=== PATIENT | male | born 1955 | race Caucasian/White ===

== ENCOUNTER → 2016-04-09 | Day surgery (SDC) | payer OTHER ==
[~2016-04-09] MED LIST: ARTIFICIAL TEARS OPTH OINT 3.5 APPLIC/3.5 GM TUBO ONE; ATOR10 PO; BALANCED SALT SOLN OPHT IRRIG 15 ML BTL ONE; BUPIVACAINE HCL PF 0.25% 30 ML VIAL ONE; CEPH500C3 PO; LACTATED RINGER'S 1000 ML INJ 1,000 ML ONE; LIDOCAINE 1%/EPINEPHrine 1:100,000 SOLN 20 ML VIAL ONE; MIDAZOLAM HCL 2 MG/2 ML VIAL ONE; NEOMYCIN/POLYMYXIN/BACITRACIN OINT 15 GM TUBE ONE; ONDANSETRON HCL 4 MG/2 ML VIAL IV PUSH ONE; PROPOFOL 200 MG/20 ML AMP IV ONE; SODIUM BICARBONATE 8.4% INJ 50 ML ONE; TAB-TAB PO; ceFAZolin 2 GM PREMIX 50 ML ONE
--- NOTE | 2016-04-10 09:44 | MP ---
cc: YANN ANTHONY M.D. DATE OF SURGERY 04/09/2016 PREOPERATIVE DIAGNOSES 1. Basal cell carcinoma right lower eyelid. 2. Basal cell carcinoma left lower eyelid. OPERATION 1. Excision right lower eyelid basal cell carcinoma, frozen section and full-thickness skin graft from the left lateral eyelid skin. 2. Excision frozen section left lower eyelid basal cell carcinoma and local flap closure. SURGEON Dr. Anthony. ANESTHESIA General. INDICATIONS This is a 61-year-old white male with biopsy-proven basal cell carcinomas involving both lower eyelids. The one on the left is somewhat in the free eyelid skin. The one on the right is actually very close to the tarsal border and a portion of the tarsal border needs to be excised at the same time. The skin graft for the defect was obtained from the left lateral eyelid close to the operative site as well. The patient understands that the tarsal margin on the right will be partly removed including the loss of ciliary hair and in the future it may need a wedge type reconstruction if there are any functional issues. Cosmetically it may not appear as good as the normal eyelid. The patient is willing to go ahead with the surgery. PROCEDURE The patient was brought to the operating room, was given supine position. Anesthesia was started. The patient had been given IV antibiotic. The time-out was called and completed. Prep and drape was done. The preoperative markings were reinforced. The right side basal cell area had been photographed a few days before showing the actual lesion. Today the lesion seems to have regressed quite a bit and the markings were done using the previous photographs to have the area included with a 3-mm margin on the sides and approximately 4-mm vertical margin. The areas where injected with lidocaine 1% with epi and sodium bicarb mixture. A stay suture was placed in the right lower eyelid tarsal plate on the inside/conjunctival side to help juanis and stabilize the eyelid for surgery and a one-third thickness of the tarsal edge was first incised then vertically dropped towards the skin and the specimen was removed. The suture yonny was placed at the inferior border. The instructions were for the pathologist to carefully checked the 12 o'clock position which would be tarsal edge. The left side was also similarly excised, suture marked superior. They were both sent for frozen section. Hemostasis was excellent. The left lower eyelid skin was mobilized in the inferior portion towards the cheek/eyelid junction to provide advancement flap closure. It was possible to close this without everting the lateral corner of the left lower eyelid and it resulted in a small dog ear formation at the outer edge of the horizontal closure and this was utilized to obtain skin graft at the same time while smoothing out the overall closure. The skin graft was applied to the right lower eyelid starting at the lower end, smoothing it out on the borders and a final stitch was placed just outside the tarsal edge border to stabilize the graft. The free edge of the graft was not sutured in order to avoid any suture irritation of the cornea. The sutures were also cut relatively short to protect the area as well. The graft being so close to the eyelid, no dressing needs to be applied, instead just the ointment coverage will be maintained. The frozen section report issued indicated clear margins around the basal cell on the left side and no clear residual basal cell noted on the right side. The patient remained stable through the procedure. Intraoperative blood loss minimal, less than 8 cc. No complications. signed, not fully reviewed MD KEMI Bishop/SSB /9:20 AM /9:34 AM DWAIN
== END | disposition home or self-care (01) ==
LOC: ESDC 07:42
PROVIDERS: ATTEND Plastic Surgery
DX: C44.112 Basal cell carcinoma of skin of right eyelid, including canthus (principal); C44.119 Basal cell carcinoma of skin of left eyelid, including canthus
CPT/HCPCS: 00300; 11642; 14060; 15260; 88305; 88331; J0690; J2250; J2405; J3010; J7120